=== PATIENT | female | born 1975 | race American Indian/Alaskan Native ===

== ENCOUNTER 2017-01-23 17:28 | Emergency (ER) | payer OTHER ==
--- NOTE | 2017-01-23 17:55 | ED PDOC ---
Arrival/HPI - General Time Seen by Provider: 01/23/17 17:47 Historian: Patient - History of Present Illness Narrative History of Present Illness (Text): 01/23/17 17:53 41 year old female whose past medical history includes reflux, asthma, and seasonal allergies presents to the emergency department with chest pain today. She describes it as a burning sensation. Patient reports normal stress test a few months ago. Denies fever or other symptoms. Time/Duration: 24 hours Symptom Onset: Gradual Symptom Course: Unchanged Associated Symptoms (Text): None Past Medical History - Provider Review Nursing Documentation Reviewed: Yes Family/Social History - Physician Review Nursing Documentation Reviewed: Yes Family/Social History: Unknown Family HX Allergies/Home Meds Allergies/Adverse Reactions: Allergies No Known Allergies Allergy (Unverified 01/23/17 17:52) Review of Systems - Physician Review All systems were reviewed & negative as marked: Yes - Review of Systems Constitutional: absent: Fevers Respiratory: absent: SOB Cardiovascular: Chest Pain Neurological: absent: Headache, Dizziness Physical Exam Vital Signs Reviewed: Yes Vital Signs Temp Pulse Resp BP Pulse Ox 01/23/17 21:05 83 16 142/68 98 01/23/17 17:51 98.0 F 91 H 18 143/81 100 Temperature: Afebrile Blood Pressure: Normal Pulse: Regular Respiratory Rate: Normal Appearance: Positive for: Well-Appearing, Non-Toxic, Comfortable Pain Distress: None Mental Status: Positive for: Alert and Oriented X 3 - Systems Exam Head: Present: Atraumatic, Normocephalic Pupils: Present: PERRL Extroacular Muscles: Present: EOMI Conjunctiva: Present: Normal Mouth: Present: Moist Mucous Membranes Neck: Present: Normal Range of Motion Respiratory/Chest: Present: Clear to Auscultation, Good Air Exchange. No: Respiratory Distress, Accessory Muscle Use Cardiovascular: Present: Regular Rate and Rhythm, Normal S1, S2. No: Murmurs Abdomen: Present: Normal Bowel Sounds. No: Tenderness, Distention, Peritoneal Signs Back: Present: Normal Inspection Upper Extremity: Present: Normal Inspection. No: Cyanosis, Edema Lower Extremity: Present: Normal Inspection. No: Edema Neurological: Present: GCS=15, CN II-XII Intact, Speech Normal Skin: Present: Warm, Dry, Normal Color. No: Rashes Psychiatric: Present: Alert, Oriented x 3, Normal Insight, Normal Concentration Medical Decision Making ED Course and Treatment: Impression: 41 year old female whose past medical history includes reflux, asthma, and seasonal allergies presents to the emergency department with chest pain today. Differential Diagnosis included but are not limited to: chest pain r/o acs. atypcial pain. Plan: -- EKG, CXR -- Labs -- Reassess and disposition Progress Notes: 01/23/17 17:57 Chest x-ray shows no acute disease read by me. Patient offered admission for chest pain but declined. Patient states she had a stress test a few months ago which was negative. She states she will come back with worsening symptoms or concerns. 01/23/17 21:48 - Lab Interpretations Lab Results: 01/23/17 18:17 01/23/17 18:17 Lab Results 01/23/17 18:17: Sodium 138, Potassium 4.0, Chloride 100, Carbon Dioxide 29, Anion Gap 13, BUN 15, Creatinine 0.8, Est GFR ( Amer) > 60, Est GFR (Non- Af Amer) > 60, Random Glucose 91, Calcium 10.0, Magnesium 1.7, Total Bilirubin 0.5, AST 28, ALT 31, Alkaline Phosphatase 62, Lactate Dehydrogenase 333, Total Creatine Kinase 142, Troponin I < 0.01, Total Protein 8.4 H, Albumin 4.2, Globulin 4.1, Albumin/Globulin Ratio 1.0 L, Lipase 46 01/23/17 18:17: PT 10.7, INR 0.99, APTT 26.8 01/23/17 18:17: WBC 9.5, RBC 3.87, Hgb 12.4, Hct 37.2, MCV 96.1, MCH 32.0, MCHC 33.3, RDW 12.8, Plt Count 268, MPV 10.6, Gran % 64.1, Lymph % (Auto) 25.2, Hinds % (Auto) 9.8 H, Eos % (Auto) 0.7 L, Baso % (Auto) 0.2, Gran # 6.11, Lymph # 2.4 , Hinds # 0.9 H, Eos # 0.1, Baso # 0.02 01/23/17 18:03: Urine HCG, Qual Negative 01/23/17 18:03: Urine Color Yellow, Urine Appearance Clear, Urine pH 6.5, Ur Specific [employer] 1.010, Urine Protein Negative, Urine Glucose (UA) Negative, Urine Ketones Negative, Urine Blood Negative, Urine Nitrate Negative, Urine Bilirubin Negative, Urine Urobilinogen 0.2, Ur Leukocyte Esterase Negative - RAD Interpretation Radiology Orders: 01/23/17 17:52 CHEST PORTABLE [RAD] Stat - EKG Interpretation EKG Interpretation (Text): EKG shows NSR at [address]/T wave changes. Interpreted by me. Interpreted by ED Physician: Yes Type: 12 lead EKG - Medication Orders Current Medication Orders: Discontinued Medications Pantoprazole Sodium (Protonix Inj) 40 mg IVP STAT STA Stop: 01/23/17 17:54 Last Admin: 01/23/17 18:51 Dose: 40 mg - Scribe Statement The provider has reviewed the documentation as recorded by the Landon Vargas Provider Scribe Attestation: All medical record entries made by the Rosendoibbharat were at my direction and personally dictated by me. I have reviewed the chart and agree that the record accurately reflects my personal performance of the history, physical exam, medical decision making, and the department course for this patient. I have also personally directed, reviewed, and agree with the discharge instructions and disposition. Disposition/Present on Arrival - Present on Arrival Any Indicators Present on Arrival: No - Disposition Have Diagnosis and Disposition been Completed?: Yes Diagnosis: Chest pain, Abdominal pain Disposition: HOME/ ROUTINE Disposition Time: 08:00 Condition: STABLE Discharge Instructions (ExitCare): Chest Pain (ED) Additional Instructions: please follow up with your doctor. return toe rwith worsening symptoms or concerns. Referrals: Jermaine Langston MD [Staff Provider] - Follow up with primary Dom Tang MD [Staff Provider] - Follow up with primary Patrick Morales MD [Primary Care Provider] - Follow up with primary
[2017-01-23 17:58] VITALS: TEMP 98; BMI 37.4
[2017-01-23 18:15] LABS: PH,URINE 6.5 (4.7-8.0); URINE BILIRUBIN NEGATIVE (NEGATIVE); URINE BLOOD NEGATIVE (NEGATIVE); URINE GLUCOSE (UA) NEGATIVE (NEGATIVE); URINE KETONE NEGATIVE (NEGATIVE); URINE LEUKOCYTE ESTERASE NEGATIVE Leu/uL (NEGATIVE); URINE PROTEIN NEGATIVE mg/dL (<30 mg/dL); URINE UROBILINOGEN 0.2 E.U./dL (<1 E.U./dL)
[2017-01-23 18:18] LABS: ADD MANUAL DIFF? NO
[2017-01-23 18:20] LABS: URINE APPEARANCE CLEAR (CLEAR); URINE COLOR YELLOW (YELLOW)
[2017-01-23 18:22] LABS: BASO # 0.02 K/mm3 (0.0-2.0); BASO % 0.2 % (0.0-3.0); EOS # 0.1 (0.0-0.7); EOS % 0.7 % (1.5-5.0); GRAN # 6.11 (1.4-6.5); GRAN % 64.1 % (50.0-68.0); HEMATOCRIT 37.2 % (36.0-48.0); LYMPH # 2.4 (1.2-3.4); LYMPH % 25.2 % (22.0-35.0); MEAN CELL VOLUME 96.1 fL (80.0-105.0); MEAN CORPUSCULAR HGB CONC 33.3 g/dl (31.0-37.0); MEAN PLATELET VOLUME 10.6 fl (7.0-11.0); MONO # 0.9 (0.1-0.6); MONO % 9.8 % (1.0-6.0); PLATELET COUNT 268 10^3/uL (120.0-450.0); RED CELL DISTRIBUTION WIDTH 12.8 % (11.5-14.5); WHITE BLOOD COUNT 9.5 10^3/ul (4.5-11.0)
[2017-01-23 18:34] LABS: ALKALINE PHOSPHATASE 62 U/L (38-133); ALT/SGPT 31 U/L (7-56); AST/SGOT 28 U/L (15-39); BILIRUBIN,TOTAL 0.5 mg/dL (0.2-1.3); BLOOD UREA NITROGEN 15 mg/dL (7-21); CARBON DIOXIDE 29 mmol/L (21-33); CHLORIDE 100 mmol/L (98-107); GFR AFRICAN-AMERICAN > 60; GLUCOSE,RANDOM 91 mg/dL (70-110); INR 0.99 (0.93-1.08); LIPASE 46 U/L (23-300); MAGNESIUM 1.7 mg/dL (1.7-2.2); PARTIAL THROMBOPLASTIN TIME 26.8 Seconds (23.7-30.8); SODIUM 138 mmol/L (132-148); TOTAL PROTEIN 8.4 g/dL (5.8-8.3)
[2017-01-23 19:06] LABS: TROPONIN I < 0.01 ng/mL
[2017-01-23 21:07] VITALS: BP 142/68; PULSE 83; RESP 16; O2SAT 98
--- NOTE | 2017-01-24 08:54 | RAD ---
HISTORY: sob COMPARISON: No prior. FINDINGS: LUNGS: No active pulmonary disease. PLEURA: No significant pleural effusion identified, no pneumothorax apparent. CARDIOVASCULAR: Normal. OSSEOUS STRUCTURES: No significant abnormalities. VISUALIZED UPPER ABDOMEN: Normal. OTHER FINDINGS: None. IMPRESSION: No active disease.
--- NOTE | 2017-01-24 09:52 | CARD ---
APPROVED REPORT EKG Measurement Heart [id number] <Conclusion> Normal sinus rhythm Possible Left atrial enlargement
== END 2017-01-23 20:20 | disposition home or self-care (01) ==
LOC: ED 17:28
DX: R07.9 Chest pain, unspecified (principal); K21.9 Gastro-esophageal reflux disease without esophagitis
CPT/HCPCS: 71010; 80053; 81003; 82550; 83615; 83690; 83735; 84484; 84703; 85025; 85610; 85730; 93005; 96374; 99281; C9113